=== PATIENT | female | born 1935 | race Caucasian/White ===

== ENCOUNTER → 2016-06-18 | Outpatient (CLI) | payer OTHER, BC ==
[~2016-06-18] MED LIST: ACIPHEX 20 MG T20 MG PO; ADVAIR HFA115 MCG/21 INH; ALLEGRA-D 12 H1 EAC2 PO; CALCIUM 500 +1 EAC5 PO; COLACE100 MG PO; LEVOTHYROXIN0.125 M1 PO; NIFEDICAL XL30 MG PO; PREMARIN0.45 MG PO
== END ==
LOC: RAD 09:14
DX: M47.896 Other spondylosis, lumbar region (principal); M41.86 Other forms of scoliosis, lumbar region

== ENCOUNTER → 2016-10-11 | Outpatient (CLI) | payer OTHER, BC | LOC: RAD 11:41 | DX: Z12.31 Encounter for screening mammogram for malignant neoplasm of breast (principal) ==

== ENCOUNTER 2017-07-24 05:32 | Day surgery (SDC) | payer OTHER, BC ==
[~2017-07-24] VITALS: Ht 157.5 cm; Wt 56.7 kg
--- NOTE | ~2017-07-24 | O ---
[facility] [place] [address] OPERATIVE REPORT Name: SONNY PRICE Room #: 150-11 [facility] M..#: [id number] Admission: 07/24/17 Attend Phys: Humberto Pickett MD Discharge: Date of : 35 Report #: [id number] THIS REPORT FOR: //name// CC: Reilly Ortiz MD DATE OF SERVICE: 07/24/2017 SURGEON: Humberto Pickett MD PACKING MACHINE FEEDER: None. PREOPERATIVE DIAGNOSIS: Bilateral lower lid ectropion. POSTOPERATIVE DIAGNOSIS: Bilateral lower lid ectropion. OPERATION PERFORMED: Bilateral lower lid ectropion repair. ANESTHESIA: Local with IV sedation. COMPLICATIONS: None. INDICATIONS FOR PROCEDURE: This patient has bilateral acquired lower lid ectropion with chronic tearing and discharge. The current procedures are undertaken in order to improve the patient's visual function, lacrimal outflow, and level of comfort. Informed consent was obtained to include but not limit to the risk of loss of vision, bleeding, infection, scarring, failure to improve the problem and need for further surgery. DESCRIPTION OF OPERATION: The patient was taken to the operating room where 2% Xylocaine with epinephrine mixed with equal parts of 0.75% Marcaine with Wydase was administered transcutaneously and transconjunctivally to each lower lid and lateral canthal area. The patient was then prepped and draped in the usual sterile fashion. A Yancy clamp was then used to clamp the left lateral canthus following which a sharp canthotomy and cantholysis were performed. The tarsal strip was prepared laterally, removing the lash bearing portion of the redundant lid margin and the redundant tarsal plate. Hemostasis was achieved with a monopolar cautery, as it was throughout the case. The tarsal strip was then secured to the internal portion of the lateral orbital tubercle with two interrupted 5-0 Prolene sutures. The lateral canthal angle was sharply reformed as the subcutaneous structures and the skin were closed with multiple interrupted 6-0 plain gut sutures. Attention was then turned to the right side where the same procedure was [facility] [address] [place] [address] OPERATIVE REPORT Name: SONNY PRICE Room #: 150-11 [facility]..#: [id number] Admission: 07/24/17 Attend Phys: Humberto Pickett MD Discharge: Date of : 35 Report #: [id number] performed. The wounds were cleaned and dressed with ophthalmic antibiotic ointment. The patient was then transported to the recovery area, having tolerated the procedure well with no anesthetic or operative complications being noted. By: [id number] Humberto Pickett MD /nt
[~2017-07-24 05:32] MED LIST changes: +ADVAIR HFA 230M12 GM INH; +LEVOXYL125 MCG PO; +NIFEDIPINE ER30 MG PO; +PRESERVISION A1 EACH PO; +PROAIR HFA8.5 GM INH
[2017-07-24 08:00] VITALS: BP 156/92
== END 2017-07-24 08:35 | disposition home or self-care (01) ==
LOC: OR 05:32 → TBA 05:32 → OR 08:35
DX: H02.105 Unspecified ectropion of left lower eyelid (principal); H02.102 Unspecified ectropion of right lower eyelid; I10 Essential (primary) hypertension; J45.909 Unspecified asthma, uncomplicated; E78.5 Hyperlipidemia, unspecified; E03.9 Hypothyroidism, unspecified; M19.90 Unspecified osteoarthritis, unspecified site; K21.9 Gastro-esophageal reflux disease without esophagitis; Z90.710 Acquired absence of both cervix and uterus; Z98.41 Cataract extraction status, right eye; Z98.42 Cataract extraction status, left eye; Z88.0 Allergy status to penicillin; Z88.8 Allergy status to other drugs, medicaments and biological substances; Z85.850 Personal history of malignant neoplasm of thyroid; Z98.890 Other specified postprocedural states; Z79.899 Other long term (current) drug therapy
CPT/HCPCS: 50010; 50101; 50386; 50398; 51636; 56527; 56531; 62110; 62850; 70005

== ENCOUNTER → 2017-08-06 | Outpatient (CLI) | payer OTHER, BC | LOC: RAD 11:35 | DX: M19.042 Primary osteoarthritis, left hand (principal); M19.041 Primary osteoarthritis, right hand; M25.742 Osteophyte, left hand ==

== ENCOUNTER 2017-09-08 05:31 | Day surgery (SDC) | payer OTHER, BC ==
[~2017-09-08] VITALS: Ht 154.9 cm; Wt 56.7 kg
--- NOTE | ~2017-09-08 | O ---
[facility] [place] [address] OPERATIVE REPORT Name: SONNY PRICE Room #: 150-5 [facility] M..#: [id number] Admission: 09/08/17 Attend Phys: Humberto Pickett MD Discharge: Date of : 35 Report #: [id number] THIS REPORT FOR: //name// CC: Dr. Diana Pickett DATE OF SERVICE: 09/08/2017 SURGEON: Humberto Pickett MD EXHIBIT CARPENTER: None. PREOPERATIVE DIAGNOSIS: Bilateral upper lid dermatochalasia with superior visual field defect. POSTOPERATIVE DIAGNOSIS: Bilateral upper lid dermatochalasia with superior visual field defect. OPERATION PERFORMED: Bilateral upper lid functional blepharoplasty. ANESTHESIA: Local with IV sedation. COMPLICATIONS: None. INDICATIONS FOR SURGERY: This patient has acquired upper lid dermatochalasia with superior visual field loss both eyes because of excessive upper lid tissues to include skin and fat. Visual field testing demonstrates dense superior visual defects. Retesting with the upper lid elevated shows an improvement in visual field loss of over 30% and in excess of 12 degrees. The current procedures are undertaken in order to improve the patient's visual function. Informed consent was obtained to include but not limited to the loss of vision, bleeding, infection, scarring, failure to improve the problem and need for further surgery. DESCRIPTION OF OPERATION: The patient was taken to the operating room, where 2% Xylocaine with epinephrine mixed with equal parts of 0.75% Marcaine with Wydase was administered transcutaneously to each upper lid. The patient was then prepped and draped in the usual sterile fashion and a skin-marking pen was then utilized to outline an upper lid crease that was symmetrical on each side. Graefe forceps were then used to quantitate the redundant upper lid skin and it was similarly outlined. The incisions were then made with Aaliyah scissors and a skin-muscle flap removed from each side with high-temp cautery. Hemostasis was achieved with the monopolar cautery as it was throughout the case. The [address] [address] OPERATIVE REPORT Name: SONNY PRICE Room #: 150-5 [facility] M.R.#: [id number] Admission: 09/08/17 Attend Phys: Humberto Pickett MD Discharge: Date of : 35 Report #: [id number] orbital septum was then identified and the central and medial fat pads were inspected. The redundant soft tissue was then sculpted with the monopolar cautery. The upper lid crease was then reformed with tightening of the pretarsal orbicularis muscle. The upper lid crease was then further reformed with multiple interrupted 6-0 chromic sutures. The skin was then closed with a running 6-0 plain gut suture. The wound was then cleaned and dressed with ophthalmic antibiotic ointment and a nonstick dressing. The patient was transported to the recovery area, where cold compresses were applied, having tolerated the procedure well with no anesthetic or operative complications being noted. By: [id number] Humberto Pickett MD /nt
[2017-09-08 13:51] VITALS: BP 160/83
== END 2017-09-08 15:45 | disposition home or self-care (01) ==
LOC: OR 05:31 → TBA 05:31 → OR 08:59
DX: H02.834 Dermatochalasis of left upper eyelid (principal); H02.831 Dermatochalasis of right upper eyelid; H53.462 Homonymous bilateral field defects, left side; H53.461 Homonymous bilateral field defects, right side; J45.909 Unspecified asthma, uncomplicated; I10 Essential (primary) hypertension; I44.7 Left bundle-branch block, unspecified; Z98.890 Other specified postprocedural states; K21.9 Gastro-esophageal reflux disease without esophagitis; M19.90 Unspecified osteoarthritis, unspecified site; Z85.850 Personal history of malignant neoplasm of thyroid
CPT/HCPCS: 50010; 50101; 50386; 50398; 51636; 56531

== ENCOUNTER → 2017-10-13 | Outpatient (CLI) | payer OTHER, BC | LOC: RAD 01:59 | DX: Z12.31 Encounter for screening mammogram for malignant neoplasm of breast (principal); J45.909 Unspecified asthma, uncomplicated ==

== ENCOUNTER → 2018-05-18 | Outpatient (CLI) | payer OTHER, BC ==
--- NOTE | 2018-05-18 11:38 | 2DMMODE ---
[facility] [place] [address] 2 D/M-MODE ECHOCARDIOGRAM Name: SONNY PRICE Room #: REG CL [facility]#: [id number] ������������� Admission: 05/18/18 ������������� Attend Phys: Fredis Aguero MD Discharge: ��� ������������� ��� Date of : 35 Date of Service: 05/18/18 1138 �� Report #: [id number] �������� ��������������������������������������������[id number] THIS REPORT FOR: //name// APPROVED REPORT Study performed: 05/18/2018 10:25:44 EXAM: Comprehensive 2D, Doppler, and color-flow Echocardiogram Patient Location: Out-Patient Status: routine BSA: 1.55 HR: 67 bpm BP: 125/70 mmHg Rhythm: LBBB Other Information Study Quality: Adequate Indications CAD LBBB 2D Dimensions RVDd: 29.74 mm IVSd: 9.36 (7-11mm) LVOT Diam: 21.21 (18-24mm) LVDd: 45.71 mm PWd: 10.79 (7-11mm) Ascending Ao: 41.92 (22-36mm) LVDs: 40.25 (25-40mm) Aortic Root: 38.07 mm IVC: 22.00 mm Volumes Left Atrial Volume (Systole) Single Plane 4CH: 24.53 mL Single Plane 2CH: 56.39 mL LA ESV Index: 27.00 mL/m2 Aortic Valve AoV Peak Chidi.: 1.31 m/s AO Peak Gr.: 6.92 mmHg LVOT Max P.64 mmHg LVOT Max V: 1.08 m/s SUSANA Vmax: 2.91 cm2 Mitral Valve IVRT: 175.32 ms [facility] [address] [place] [address] 2 D/M-MODE ECHOCARDIOGRAM Name: SONNY PRICE Room #: REG CL [facility]#: [id number] ������������� Admission: 05/18/18 ������������� Attend Phys: Fredis Aguero MD Discharge: ��� ������������� ��� Date of : 35 Date of Service: 05/18/18 1138 �� Report #: [id number] �������� ��������������������������������������������[id number] Pulmonary Valve PV Peak Chidi.: 0.76 m/s PV Peak Gr.: 2.30 mmHg Pulmonary Vein P Vein S: 0.36 m/s P Vein A: 0.20 m/s P Vein D: 0.43 m/s P Vein A Dur.: 92.3 msec P Vein S/D Ratio: 0.84 Tricuspid Valve TR Peak Chidi.: 2.41 m/s RAP Estimate: 10.00 mmHg TR Peak Gr.: 23.21 mmHg PA Pressure: 33.00 mmHg Left Ventricle The left ventricle is normal size. Hypokinesis of the inferolateral wall. There is normal left ventricular wall thickness. Left ventricular systolic function is moderate to severely decreased. LVEF is 35%. This study is not technically sufficient to allow evaluation of the LV diastolic function. Right Ventricle The right ventricle is normal size. The right ventricular systolic function is normal. Atria The left atrium size is normal. The right atrium size is normal. Aortic Valve The aortic valve is normal in structure. Mild aortic regurgitation. There is no aortic valvular stenosis. Mitral Valve Mild mitral annular calcification. Mild mitral regurgitation. No evidence of mitral valve stenosis. Tricuspid Valve The tricuspid valve is normal in structure. Mild to moderate tricuspid regurgitation. PAP is estimated at 33 mmHg. Pulmonic Valve The pulmonary valve is normal in structure. Trace to mild pulmonic regurgitation. Great Vessels The aortic root is normal in size. Ascending aorta is mildly dilated [facility] [address] [place] [address] 2 D/M-MODE ECHOCARDIOGRAM Name: SONNY PRICE Room #: REG CL [facility].#: [id number] ������������� Admission: 05/18/18 ������������� Attend Phys: Fredis Aguero MD Discharge: ��� ������������� ��� Date of : 35 Date of Service: 05/18/18 1138 �� Report #: [id number] �������� ��������������������������������������������[id number] at 4.2 cm. IVC is mildly dilated and collapses >50% with inspiration. Pericardium There is no pericardial effusion. <Conclusion> The left ventricle is normal size. There is normal left ventricular wall thickness. Left ventricular systolic function is moderate to severely decreased. Hypokinesis of the inferolateral wall. The right ventricle is normal size. The left atrium size is normal. Mild aortic regurgitation. Mild mitral regurgitation. Mild to moderate tricuspid regurgitation. PAP is estimated at 33 mmHg. ��������������������������������������������� <ELECTRONICALLY SIGNED> ���������������������������������������� By: Fredis Aguero MD ��������������������������������������������� 05/18/18 1138 1138 1138 Fredis Aguero MD /INF
== END ==
LOC: CV 10:14
DX: I08.3 Combined rheumatic disorders of mitral, aortic and tricuspid valves (principal); I25.10 Atherosclerotic heart disease of native coronary artery without angina pectoris; Z88.1 Allergy status to other antibiotic agents; Z88.5 Allergy status to narcotic agent; Z88.8 Allergy status to other drugs, medicaments and biological substances

== ENCOUNTER → 2018-05-28 | Outpatient (CLI) | payer OTHER, BC ==
[~2018-05-28] VITALS: Ht 154.9 cm; Wt 56.7 kg
[~2018-05-28] MED LIST changes: +ADVAIR HFA 230M12 GM PO; +ALLEGRA-D 12 H1 EAC1 PO; +CARVEDILOL3.125 MG PO; +VITAMIN D1000 UNI1 PO
[2018-05-28 10:06] VITALS: BP 169/88
[2018-05-28 10:15] LABS: CHOLESTEROL 222 mg/dL (<200); HDL CHOLESTEROL 73 mg/dL (>40); LDL CHOLESTEROL 132 mg/dL (<100); TRIGLYCERIDE 89 mg/dL (<150); VLDL 18 mg/dL (<40)
--- NOTE | 2018-05-28 16:23 | CATHLAB ---
[facility] [place] [address] INVASIVE PROCEDURE REPORT Name: SONNY PRICE Room #: REG [facility]#: [id number] ������������� Admission: 05/28/18 ������������� Attend Phys: Fredis Aguero MD Discharge: ��� ������������� ��� Date of : 35 Date of Service: 05/28/18 1623 �� Report #: [id number] �������� ��������������������������������������������[id number] THIS REPORT FOR: //name// APPROVED REPORT Study performed: 05/28/2018 10:15:23 Patient Details Patient Status: Out-Patient Room #: The patient is a 82 year-old female Event Personnel Fredis Aguero Lesson Instructor, Ana Alcantar RN RN, Pema Garcia Sandifer, David Monitor Procedures Performed Left Heart Cath w/or w/o Coronaries [id number] [facility] Indication Dyspnea, Cardiomyopathy Risk Factors Hypercholesterolemia, Hypertension Procedure Narrative The Right Groin^ was infiltrated with 1% Lidocaine subcutaneous anesthesia. A PINNACLE 4FR Sheath #[id number] sheath was inserted into the RFA^. Coronary angiography was performed using coronary diagnostic catheters. The right coronary system was accessed and visualized with a JR4 catheter. The left coronary system was accessed and visualized with a 4FR JL 5.0 #[id number] catheter. The left ventricle was accessed and visualized with a PIGTAIL catheter. Left ventricular/Aortic Valve gradient assessed via catheter pullback. Left ventriculogram was performed in 30 degree projection. Hemostasis was obtained with manual pressure following sheath removal without any complications. There was no hematoma. Intraoperative Conscious Sedation Sedation start time: 11.11 Case end Time: 11.45 Fentanyl 25 mcg Versed 1 mg Fluoro Time: 2.33 minutes Dose: DAP 1204 cGycm2 143 mGy [facility] [address] [place] [address] INVASIVE PROCEDURE REPORT Name: SONNY PRICE Room #: REG [facility]#: [id number] ������������� Admission: 05/28/18 ������������� Attend Phys: Fredis Aguero MD Discharge: ��� ������������� ��� Date of : 35 Date of Service: 05/28/18 1623 �� Report #: [id number] �������� ��������������������������������������������[id number] Coronary Angiography The patient's coronary anatomy is right dominant. Diagnostic Cath Left Main There is a large caliber vessel, patent with no flow-limiting lesions. LAD There is a moderate size caliber vessel, traversing the anterior wall and wrapping around the apex. This vessel is patent with minimal disease in the mid segment, less than 10%. Diagonal 1 This is a moderate size caliber vessel, supplies multiple branches as it travels down the anterolateral wall. This vessel is patent with no flow-limiting lesions. Circumflex This is a moderate size caliber vessel, supplies one OM vessel. This vessel is patent. OM1 This is a patent vessel, with no flow-limiting lesions. Right Coronary This is a dominant vessel, patent with no flow-limiting lesions. R PDA This is a patent vessel, with no flow-limiting lesions. RPLV This is a patent vessel, with no flow-limiting lesions. Left Ventriculography The left ventricle is mildly dilated in size with decreased contractility. The left ventricular ejection fraction is estimated to be 35%. Hemodynamics The aortic pressure is 166/63 mmHg with a mean of 105 mmHg. The left ventricular pressure is 177/14 mmHg with a mean of mmHg. The left ventricular end diastolic pressure is 15 mmHg. There was no gradient across the aortic valve upon pullback. Pullback from the left ventricle to the aorta revealed no gradient across the aortic valve. Conclusion 1. Nonischemic cardiomyopathy. 2. 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 3. Recommend medical therapy. ��������������������������������������������� <ELECTRONICALLY SIGNED> ���������������������������������������� By: Fredis Aguero MD ��������������������������������������������� 05/28/18 1623 1623 1623 Fredis Aguero MD /INF
--- NOTE | 2018-05-29 15:12 | EKG ---
[place] [address] [facility] [place] [address] ELECTROCARDIOGRAM REPORT Name: SONNY PRICE Room #: REG [facility]#: [id number] ������������������ Admission: 05/28/18 ������������������ Attend Phys: Fredis Aguero MD Discharge: ������������������ Date of : 35 Report #: [id number] ����������������������������������������������������������������� [id number] THIS REPORT FOR: //name// [facility] Test Date: 2018-05-28 Test Time: 09:51:29 Pat Name: SONNY PRICE Department: Room: Gender: F Glove Maker: Víctor BRANNON : 1935 Requested By: Fredis Aguero Order Number: [id number] MD: Fadi Alvarez Measurements Intervals [place] Rate: 65 P: 61 MO: 227 QRS: -53 QRSD: 162 T: 109 QT: 455 QTc: 474 Interpretive Statements Sinus arrhythmia Prolonged MO interval Left bundle branch block Compared to ECG 08/26/2015 16:24:45 no significant change Electronically Signed On 05-29-2018 15:12:27 CDT by Fadi Alvarez [email or web address] ��������������������������������������������� <ELECTRONICALLY SIGNED> ���������������������������������������� By: Fadi Alvarez MD ��������������������������������������������� 05/29/18 1512 0 Fadi Alvarez MD /EPI
== END | disposition home or self-care (01) ==
LOC: CATH 05-21 07:08
PROVIDERS: Internal Medicine Cardiovascular Disease
DX: I25.10 Atherosclerotic heart disease of native coronary artery without angina pectoris (principal); I42.9 Cardiomyopathy, unspecified; I10 Essential (primary) hypertension; E78.00 Pure hypercholesterolemia, unspecified; K21.9 Gastro-esophageal reflux disease without esophagitis; J45.909 Unspecified asthma, uncomplicated; M19.90 Unspecified osteoarthritis, unspecified site; Z95.5 Presence of coronary angioplasty implant and graft; Z90.710 Acquired absence of both cervix and uterus; Z98.41 Cataract extraction status, right eye; Z98.42 Cataract extraction status, left eye; Z96.1 Presence of intraocular lens; Z79.01 Long term (current) use of anticoagulants; Z79.899 Other long term (current) drug therapy; Z88.0 Allergy status to penicillin; Z88.8 Allergy status to other drugs, medicaments and biological substances

== ENCOUNTER → 2018-10-19 | Outpatient (CLI) | payer OTHER, BC | LOC: RAD 01:20 | DX: Z12.31 Encounter for screening mammogram for malignant neoplasm of breast (principal) ==

== ENCOUNTER → 2019-07-15 | Outpatient (CLI) | payer OTHER, BC | LOC: SJCVCIMAG 08:15 | DX: R94.31 Abnormal electrocardiogram [ECG] [EKG] (principal); I44.0 Atrioventricular block, first degree; I44.7 Left bundle-branch block, unspecified; I07.1 Rheumatic tricuspid insufficiency; I42.9 Cardiomyopathy, unspecified; I47.1 Supraventricular tachycardia; I10 Essential (primary) hypertension; R60.9 Edema, unspecified ==

== ENCOUNTER → 2019-10-18 | Outpatient (CLI) | payer OTHER, BC | LOC: RAD 12:02 | PROVIDERS: ATTEND Internal Medicine | DX: J45.30 Mild persistent asthma, uncomplicated (principal); I51.7 Cardiomegaly; Q25.46 Tortuous aortic arch; I77.810 Thoracic aortic ectasia; M85.88 Other specified disorders of bone density and structure, other site; M47.816 Spondylosis without myelopathy or radiculopathy, lumbar region ==

== ENCOUNTER → 2019-10-25 | Outpatient (CLI) | payer OTHER, BC | LOC: RAD 08:19 | PROVIDERS: ATTEND Family Medicine | DX: Z12.31 Encounter for screening mammogram for malignant neoplasm of breast (principal) ==

== ENCOUNTER → 2020-01-07 | Outpatient (CLI) | payer OTHER, BC | LOC: SJCVC 10:29 → SJCVCIMAG 10:29 | PROVIDERS: ATTEND Internal Medicine Cardiovascular Disease | DX: R94.31 Abnormal electrocardiogram [ECG] [EKG] (principal); I44.7 Left bundle-branch block, unspecified; M79.89 Other specified soft tissue disorders; M79.605 Pain in left leg; I10 Essential (primary) hypertension; I42.9 Cardiomyopathy, unspecified; I47.1 Supraventricular tachycardia; Z79.899 Other long term (current) drug therapy ==

== ENCOUNTER → 2020-06-05 | Outpatient (CLI) | payer OTHER, BC | LOC: RAD 13:30 | PROVIDERS: ATTEND Nurse Practitioner | DX: M43.16 Spondylolisthesis, lumbar region (principal); M41.86 Other forms of scoliosis, lumbar region; M51.36 Other intervertebral disc degeneration, lumbar region; M54.31 Sciatica, right side; M54.32 Sciatica, left side ==

== ENCOUNTER → 2020-07-07 | Outpatient (CLI) | payer OTHER, BC | LOC: SJCVC 11:21 | PROVIDERS: ATTEND Internal Medicine Cardiovascular Disease | DX: R94.31 Abnormal electrocardiogram [ECG] [EKG] (principal); I44.0 Atrioventricular block, first degree; I49.8 Other specified cardiac arrhythmias; I45.4 Nonspecific intraventricular block; I42.9 Cardiomyopathy, unspecified; I10 Essential (primary) hypertension; I44.7 Left bundle-branch block, unspecified; R60.9 Edema, unspecified; K21.9 Gastro-esophageal reflux disease without esophagitis; E03.9 Hypothyroidism, unspecified; R00.0 Tachycardia, unspecified; E78.5 Hyperlipidemia, unspecified; Z79.899 Other long term (current) drug therapy; Z88.5 Allergy status to narcotic agent; Z88.1 Allergy status to other antibiotic agents; Z88.8 Allergy status to other drugs, medicaments and biological substances; Z72.89 Other problems related to lifestyle ==

== ENCOUNTER → 2020-10-26 | Outpatient (CLI) | payer OTHER, BC | LOC: BC 10:22 | PROVIDERS: ATTEND Family Medicine | DX: Z12.31 Encounter for screening mammogram for malignant neoplasm of breast (principal) ==

== ENCOUNTER → 2021-01-09 | Outpatient (CLI) | payer OTHER, BC | LOC: SJCVCIMAG 06:48 | PROVIDERS: ATTEND Internal Medicine Cardiovascular Disease | DX: R94.31 Abnormal electrocardiogram [ECG] [EKG] (principal); I44.0 Atrioventricular block, first degree; I44.7 Left bundle-branch block, unspecified; I08.1 Rheumatic disorders of both mitral and tricuspid valves; I42.9 Cardiomyopathy, unspecified; I10 Essential (primary) hypertension; E03.9 Hypothyroidism, unspecified; E78.5 Hyperlipidemia, unspecified; I25.10 Atherosclerotic heart disease of native coronary artery without angina pectoris; R60.9 Edema, unspecified; Z88.8 Allergy status to other drugs, medicaments and biological substances; Z88.5 Allergy status to narcotic agent; Z88.1 Allergy status to other antibiotic agents; Z79.899 Other long term (current) drug therapy; Z72.89 Other problems related to lifestyle ==